=== PATIENT | male | born 1935 | race Caucasian/White ===

== ENCOUNTER 2017-08-13 15:42 | Emergency (ER) | payer MEDICARE, MEDICAID ==
[2017-08-13] MEDS ORDERED: Albuterol/Ipratropium 3.0-0.5 MG/3 ML Neb Soln NEB ONE (16:50)
--- NOTE | 2017-08-13 17:12 | EDM.PDOC ---
ED HPI GENERAL MEDICAL PROBLEM - General Chief Complaint: General Stated Complaint: WEAKNESS,SOB,TIRED Time Seen by Provider: 08/13/17 16:35 Source of Information: Reports: Patient History Limitations: Reports: No Limitations - History of Present Illness INITIAL COMMENTS - FREE TEXT/NARRATIVE: Patient is an 81-year-old gentleman who presents to the emergency department this afternoon with a complaint of weakness, shortness of breath, and cough. Patient states that symptoms been going on for about 10 days. Says that he has no appetite, lost weight, and just feels very weak. Patient denies chest pain, fever, abdominal pain, nausea, vomiting, diarrhea, headache, or dizziness. Onset: Gradual Duration: Day(s): Location: Reports: Generalized Severity: Mild Improves with: Reports: None Worsens with: Reports: None Associated Symptoms: Reports: Cough, Shortness of Breath, Weakness. Denies: Chest Pain, Fever/Chills, Headaches, Nausea/Vomiting - Related Data Allergies Allergy/AdvReac Type Severity Reaction Status Date / Time No Known Drug Allergies Allergy Cannot Verified 08/13/17 16:31 Remember Home Meds: Home Meds Allopurinol [Zyloprim] 100 mg PO BID 02/22/16 [History] Aspirin [Halfprin] 81 mg PO BRK 02/23/16 [History] Finasteride [Proscar] 5 mg PO DAILY tablet 01/21/17 [Rx] Metoprolol Tartrate [Lopressor] 25 mg PO BID tablet 01/21/17 [Rx] Omeprazole 20 mg PO ACBREAKFAST cap.cr 01/21/17 [Rx] Prednisone [IJD: predniSONE] 20 mg PO WITHBREAKFAST #5 tablet 01/21/17 [Rx] Simvastatin [Zocor] 40 mg PO BEDTIME tablet 01/21/17 [Rx] guaiFENesin [Mucinex] 600 mg PO BID tab.er 01/21/17 [Rx] Past Medical History HEENT History: Reports: Cataract, Impaired Vision, Macular Degeneration 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 Cardiovascular History: Reports: High Cholesterol, Hypertension Respiratory History: Reports: COPD Gastrointestinal History: Reports: GERD Genitourinary History: Reports: Prostate Disorder, Other (See Below) Other Genitourinary History: h/o bladder surgery from accident when younger Musculoskeletal History: Reports: Fracture, Gout Other Musculoskeletal History: crushing injury to pelvis and legs Neurological History: Reports: CVA Hematologic History: Reports: Blood Transfusion(s) - Infectious Disease History Infectious Disease History: Reports: Chicken Pox, Mumps - Past Surgical History Male Surgical History: Reports: Other (See Below) Musculoskeletal Surgical History: Reports: Other (See Below) Social & Family History - Family History Family Medical History: Noncontributory - Tobacco Use Smoking Status *Q: Former Smoker Years of Tobacco use: 20 Packs/Tins Daily: 4 Used Tobacco, but Quit: Yes Month/Year Tobacco Last Used: quit 48 years ago Second Hand Smoke Exposure: No - Caffeine Use Caffeine Use: Reports: Coffee - Recreational Drug Use Recreational Drug Use: No ED ROS GENERAL - Review of Systems Review Of Systems: ROS reveals no pertinent complaints other than HPI. Constitutional: Reports: Weakness HEENT: Reports: No Symptoms Respiratory: Reports: Shortness of Breath, Cough Cardiovascular: Reports: No Symptoms. Denies: Chest Pain Endocrine: Reports: No Symptoms GI/Abdominal: Reports: No Symptoms : Reports: No Symptoms Musculoskeletal: Reports: No Symptoms Skin: Reports: No Symptoms Neurological: Reports: No Symptoms Psychiatric: Reports: No Symptoms Hematologic/Lymphatic: Reports: No Symptoms Immunologic: Reports: No Symptoms ED EXAM, GENERAL - Physical Exam Exam: See Below Exam Limited By: No Limitations General Appearance: Alert, WD/WN, No Apparent Distress Eye Exam: Bilateral Eye: Normal Inspection Nose: Normal Inspection, Normal Mucosa, No Blood Throat/Mouth: Normal Inspection, Normal Oropharynx, No Airway Compromise Head: Atraumatic, Normocephalic Neck: Normal Inspection, Supple, Non-Tender. No: Lymphadenopathy (L), Lymphadenopathy (R) Respiratory/Chest: No Respiratory Distress, Decreased Breath Sounds, Wheezing ( Expiratory bilateral) Cardiovascular: Regular Rate, Rhythm, No Murmur GI/Abdominal: Normal Bowel Sounds, Soft, Non-Tender, No Organomegaly, No Distention, No Abnormal Bruit, No Mass Back Exam: Normal Inspection. No: CVA Tenderness (L), CVA Tenderness (R) Extremities: Normal Inspection, No Pedal Edema Neurological: Alert, Oriented, CN II-XII Intact, Normal Cognition, No Motor/ Sensory Deficits Psychiatric: Normal Affect, Normal Mood Skin Exam: Warm, Dry, Intact, Normal Color, No Rash Lymphatic: No Adenopathy EKG INTERPRETATION EKG Date: 08/13/17 Time: 16:30 Rhythm: Other (Sinus rhythm with PACs) Rate (Beats/Min): 87 Comparison: No Change Course - Vital Signs Last Recorded V/S: Last Vital Signs Temp 99 F 08/13/17 16:31 Pulse 96 08/13/17 16:31 Resp 15 08/13/17 16:31 BP 102/66 08/13/17 16:31 Pulse Ox 96 08/13/17 16:31 - Orders/Labs/Meds Orders: Active Orders 24 hr Category Date Time Status EKG Documentation Completion [RC] ASDIRECTED Care 08/13/17 16:29 Active RT Aerosol Therapy [RC] ASDIRECTED Care 08/13/17 16:50 Ordered Chest 2V [CR] Stat Exams 08/13/17 16:29 Taken UA W/MICROSCOPIC [URIN] Stat Lab 08/13/17 16:27 Ordered EKG 12 Lead [EK] Routine Ther 08/13/17 16:28 Ordered Labs: Laboratory Tests 08/13/17 08/13/17 Range/Units 16:15 16:15 WBC 7.0 (5.0-10.0) 10^3/uL RBC 4.03 L (4.50-6.00) 10^6/uL Hgb 12.2 L (13.0-17.0) g/dL Hct 37.3 L (40.0-52.0) % MCV 92.7 H (82.0-92.0) fL MCH 30.2 (27.0-31.0) pg MCHC 32.6 (32.0-36.0) g/dL RDW 13.4 (11.5-14.5) % Plt Count 344 H D (150-300) 10^3/uL MPV 7.3 L (7.4-10.4) fL Neut % (Auto) 75.2 H (50.0-70.0) % Lymph % (Auto) 15.0 L (20.0-40.0) % [place] % (Auto) 7.2 (2.0-8.0) % Eos % (Auto) 2.6 (1.0-3.0) % Baso % (Auto) 0.0 (0.0-1.0) % Neut # (Auto) 5.2 (2.5-7.0) 10^3/uL Lymph # (Auto) 1.1 (1.0-4.0) 10^3/uL [place] # (Auto) 0.5 (0.1-0.8) 10^3/uL Eos # (Auto) 0.2 (0.1-0.3) 10^3/uL Baso # (Auto) 0.0 (0.0-0.1) 10^3/uL Sodium 142 (136-145) mmol/L Potassium 4.0 (3.3-5.3) mmol/L Chloride 102 (98-115) mmol/L Carbon Dioxide 30.3 (21.0-32.0) mmol/L BUN 19 (6-25) mg/dL Creatinine 1.25 H (0.51-1.17) mg/dL Est Cr Clr Drug Dosing 37.35 mL/min Estimated GFR (MDRD) 55 mL/min Glucose 103 (70-110) mg/dL Calcium 9.2 (8.7-10.3) mg/dL Total Bilirubin 0.4 (0.2-1.0) mg/dL AST 21 (15-37) U/L ALT 25 (12-78) U/L Alkaline Phosphatase 66 (46-116) IU/L Total Protein 7.1 (6.4-8.2) g/dL Albumin 3.61 (3.00-4.80) g/dL Meds: Medications Discontinued Medications Generic Name Dose Route Start Last Admin Trade Name Freq PRN Reason Stop Dose Admin Albuterol/Ipratropium 3 ml 08/13/17 16:50 Duoneb 3.0-0.5 Mg/3 Ml NEB 08/13/17 16:51 ONETIME ONE - Radiology Interpretation Free Text/Narrative:: Chest x-ray shows chronic COPD - Re-Assessments/Exams Free Text/Narrative Re-Assessment/Exam: 08/13/17 17:22 Patient afebrile, nontoxic appearing, vital signs stable. Patient has not been consistent taking his COPD inhalers. Reemphasized the importance and went over that with him. Patient will follow-up with Dr. Hernandez this week. Departure - Departure Time of Disposition: 17:27 Disposition: Home, Self-Care 01 Condition: Good Clinical Impression: COPD (chronic obstructive pulmonary disease) Qualifiers: COPD type: COPD with acute exacerbation Qualified Code(s): J44.1 - Chronic obstructive pulmonary disease with (acute) exacerbation - Discharge Information Instructions: Chronic Obstructive Pulmonary Disease, [id number] Referrals: Terese Arambula MD [Primary Care Provider] - Forms: ED Department Discharge Additional Instructions: Follow-up with Dr. Hernandez on Saturday. Call tomorrow for appointment time. Return to the emergency department if symptoms continue or worsen. Take inhalers as directed. - My Orders Last 24 Hours: My Active Orders 08/13/17 16:27 UA W/MICROSCOPIC [URIN] Stat 08/13/17 16:28 EKG 12 Lead [EK] Routine 08/13/17 16:29 EKG Documentation Completion [RC] ASDIRECTED Chest 2V [CR] Stat 08/13/17 16:50 RT Aerosol Therapy [RC] ASDIRECTED - Assessment/Plan Last 24 Hours: My Active Orders 08/13/17 16:27 UA W/MICROSCOPIC [URIN] Stat 08/13/17 16:28 EKG 12 Lead [EK] Routine 08/13/17 16:29 EKG Documentation Completion [RC] ASDIRECTED Chest 2V [CR] Stat 08/13/17 16:50 RT Aerosol Therapy [RC] ASDIRECTED Assessment:: COPD exacerbation
[2017-08-13] MEDS ORDERED: Albuterol/Ipratropium 3.0-0.5 MG/3 ML Neb Soln ONE (17:30)
[2017-08-13 17:50] VITALS: BP 109/46
== END 2017-08-13 18:30 | disposition home or self-care (01) ==
LOC: KA.ED 15:42
DX: J44.1 Chronic obstructive pulmonary disease with (acute) exacerbation (principal); E78.00 Pure hypercholesterolemia, unspecified; I10 Essential (primary) hypertension; Z79.899 Other long term (current) drug therapy; Z87.891 Personal history of nicotine dependence
CPT/HCPCS: 71046; 80053; 81001; 85025; 93005; 94640; 99285

== ENCOUNTER 2017-08-28 16:18 | Emergency (ER) | payer MEDICARE, MEDICAID ==
--- NOTE | 2017-08-28 16:34 | EDM.PDOC ---
ED HPI GENERAL MEDICAL PROBLEM - General Chief Complaint: Chest Pain Stated Complaint: L ARM PAIN Time Seen by Provider: 08/28/17 16:33 Source of Information: Reports: Patient History Limitations: Reports: No Limitations - History of Present Illness INITIAL COMMENTS - FREE TEXT/NARRATIVE: 81 YO WM presents to ER complaining of left sided shoulder and arm pain x 2 days. Pt reports pain has been intermittent. Pt reports pain radiates to left chest on occasion. Pt reports pain is worse with left shoulder movment. Pt denies nausea/vomiting, denies diaphoresis. Pt reports history of COPD with no change in his baseline shortness of breath. Pt states he had an episode of chest pain 2 weeks ago as well. Duration: Day(s): (2) Location: Reports: Chest, Upper Extremity, Left Quality: Reports: Ache Severity: Mild Improves with: Reports: None Worsens with: Reports: None Associated Symptoms: Reports: Chest Pain, Cough, Shortness of Breath. Denies: Diaphoresis, Fever/Chills, Nausea/Vomiting - Related Data Allergies Allergy/AdvReac Type Severity Reaction Status Date / Time No Known Drug Allergies Allergy Cannot Verified 08/28/17 17:11 Remember Home Meds: Home Meds Allopurinol [Zyloprim] 100 mg PO BID 02/22/16 [History] Aspirin [Halfprin] 81 mg PO BRK 02/23/16 [History] Finasteride [Proscar] 5 mg PO DAILY tablet 01/21/17 [Rx] Metoprolol Tartrate [Lopressor] 25 mg PO BID tablet 01/21/17 [Rx] Omeprazole 20 mg PO ACBREAKFAST cap.cr 01/21/17 [Rx] Albuterol [Proventil HFA] 1 puff INH Q4HR PRN 08/28/17 [History] Albuterol [Proventil Neb Soln] 2.5 mg NEB Q4HR PRN 08/28/17 [History] Budesonide/Formoterol Fumarate [Symbicort 160-4.5 Mcg Inhaler] 2 puff IH BEDTIME 08/28/17 [History] Nebulizer/Compressor [Devilbiss Pulmoneb Lt Comp-Neb] 1 each NEB ASDIRECTED [History] Simvastatin [Zocor] 20 mg PO BEDTIME 08/28/17 [History] Past Medical History HEENT History: Reports: Cataract, Impaired Vision, Macular Degeneration 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 Cardiovascular History: Reports: High Cholesterol, Hypertension Respiratory History: Reports: COPD Gastrointestinal History: Reports: GERD Genitourinary History: Reports: Prostate Disorder, Other (See Below) Other Genitourinary History: h/o bladder surgery from accident when younger Musculoskeletal History: Reports: Fracture, Gout Other Musculoskeletal History: crushing injury to pelvis and legs Neurological History: Reports: CVA Hematologic History: Reports: Blood Transfusion(s) - Infectious Disease History Infectious Disease History: Reports: Chicken Pox, Mumps - Past Surgical History Male Surgical History: Reports: Other (See Below) Musculoskeletal Surgical History: Reports: Other (See Below) Social & Family History - Family History Family Medical History: Noncontributory - Tobacco Use Smoking Status *Q: Former Smoker Years of Tobacco use: 20 Packs/Tins Daily: 4 Used Tobacco, but Quit: Yes Month/Year Tobacco Last Used: quit 48 years ago Second Hand Smoke Exposure: No - Caffeine Use Caffeine Use: Reports: Coffee - Recreational Drug Use Recreational Drug Use: No ED ROS GENERAL - Review of Systems Review Of Systems: See Below Constitutional: Reports: No Symptoms HEENT: Reports: No Symptoms Respiratory: Reports: Shortness of Breath, Cough Cardiovascular: Reports: Chest Pain Endocrine: Reports: No Symptoms GI/Abdominal: Reports: No Symptoms : Reports: No Symptoms Musculoskeletal: Reports: Shoulder Pain Skin: Reports: No Symptoms Neurological: Reports: No Symptoms Psychiatric: Reports: No Symptoms Hematologic/Lymphatic: Reports: No Symptoms Immunologic: Reports: No Symptoms ED EXAM, GENERAL - Physical Exam Exam: See Below Exam Limited By: No Limitations General Appearance: Alert, WD/WN, No Apparent Distress Nose: Normal Inspection, Normal Mucosa, No Blood Throat/Mouth: Normal Inspection, Normal Lips, Normal Teeth, Normal Gums, Normal Oropharynx, Normal Voice, No Airway Compromise Head: Atraumatic, Normocephalic Neck: Normal Inspection, Supple, Non-Tender, Full Range of Motion Respiratory/Chest: No Respiratory Distress, No Accessory Muscle Use, Chest Non- Tender, Rales, Rhonchi Cardiovascular: Normal Peripheral Pulses, Regular Rate, Rhythm, No Edema, No Gallop, No JVD, No Murmur, No Rub GI/Abdominal: Normal Bowel Sounds, Soft, Non-Tender, No Organomegaly, No Distention, No Abnormal Bruit, No Mass Back Exam: Normal Inspection, Full Range of Motion, NT Extremities: Normal Inspection, Normal Range of Motion, Non-Tender, No Pedal Edema, Normal Capillary Refill, Arm Pain Neurological: Alert, Oriented, CN II-XII Intact, Normal Cognition, Normal Gait, Normal Reflexes, No Motor/Sensory Deficits Psychiatric: Normal Affect, Normal Mood Skin Exam: Warm, Dry, Intact, Normal Color, No Rash Lymphatic: No Adenopathy EKG INTERPRETATION EKG Date: 08/28/17 Time: 16:58 Rhythm: NSR Rate (Beats/Min): 58 [place]: Normal P-Wave: Present QRS: Normal ST-T: Normal QT: Normal Comparison: NA - No Prior EKG Course - Vital Signs Last Recorded V/S: Last Vital Signs Temp 36.7 C 08/28/17 17:30 Pulse 60 08/28/17 17:30 Resp 18 08/28/17 17:30 BP 121/47 L 08/28/17 17:30 Pulse Ox 97 08/28/17 17:30 - Orders/Labs/Meds Orders: Active Orders 24 hr Category Date Time Status Cardiac Monitoring [RC] . DIRECTED Care 08/28/17 16:48 Active EKG Documentation Completion [RC] ASDIRECTED Care 08/28/17 16:49 Active Oxygen Therapy, ED [RC] ASDIRECTED Care 08/28/17 16:48 Active Peripheral IV Care [RC] . DIRECTED Care 08/28/17 16:49 Active Chest 2V [CR] Stat Exams 08/28/17 16:48 Ordered CK W CKMB [CHEM] Stat Lab 08/28/17 16:57 Received COMPREHENSIVE METABOLIC PN,CMP [CHEM] Stat Lab 08/28/17 16:57 Received TROPONIN I [CHEM] Stat Lab 08/28/17 16:57 Received Sodium Chloride 0.9% [Syrex Flush] Med 08/28/17 16:48 Active 5 ml FLUSH Q8HR PRN Peripheral IV Insertion Adult [OM.PC] Routine Oth 08/28/17 16:48 Ordered EKG 12 Lead [EK] Routine Ther 08/28/17 16:48 Ordered Medication Orders Sodium Chloride (Syrex Flush) 5 ml FLUSH Q8HR PRN PRN Reason: Keep Vein Open Labs: Laboratory Tests 08/28/17 08/28/17 Range/Units 16:57 16:57 WBC 6.4 (5.0-10.0) 10^3/uL RBC 3.80 L (4.50-6.00) 10^6/uL Hgb 11.7 L (13.0-17.0) g/dL Hct 35.6 L (40.0-52.0) % MCV 93.6 H (82.0-92.0) fL MCH 30.9 (27.0-31.0) pg MCHC 33.0 (32.0-36.0) g/dL RDW 13.8 (11.5-14.5) % Plt Count 204 D (150-300) 10^3/uL MPV 7.9 (7.4-10.4) fL Neut % (Auto) 73.0 H (50.0-70.0) % Lymph % (Auto) 16.6 L (20.0-40.0) % [place] % (Auto) 6.4 (2.0-8.0) % Eos % (Auto) 4.0 H (1.0-3.0) % Baso % (Auto) 0.0 (0.0-1.0) % Neut # (Auto) 4.6 (2.5-7.0) 10^3/uL Lymph # (Auto) 1.1 (1.0-4.0) 10^3/uL [place] # (Auto) 0.4 (0.1-0.8) 10^3/uL Eos # (Auto) 0.3 (0.1-0.3) 10^3/uL Baso # (Auto) 0.0 (0.0-0.1) 10^3/uL PT 10.0 (8.9-11.4) SEC INR 1.0 (0.9-1.1) APTT 25.8 (20.8-31.2) SEC Meds: Medications Generic Name Dose Route Start Last Admin Trade Name Freq PRN Reason Stop Dose Admin Sodium Chloride 5 ml 08/28/17 16:48 Syrex Flush FLUSH Q8HR PRN Keep Vein Open Discontinued Medications Generic Name Dose Route Start Last Admin Trade Name Freq PRN Reason Stop Dose Admin Aspirin 324 mg 08/28/17 16:48 08/28/17 17:37 Aspirin PO 08/28/17 16:49 243 mg ONETIME ONE Administration Nitroglycerin 1 gm 08/28/17 16:48 08/28/17 17:39 Nitro-Bid 2% TOP 08/28/17 16:49 Not Given ONETIME ONE - Radiology Interpretation Free Text/Narrative:: CXR- NAD - Re-Assessments/Exams Free Text/Narrative Re-Assessment/Exam: 08/28/17 17:48 discussed with patient consideration for hospitalization to rule out cardiac concerns. Pt refused. I have a low suspicion for cardiac related pain so i will discharge with recommendations to return for worsening symptoms and follow up in clinic for further evaluation and treatment. Departure - Departure Time of Disposition: 17:49 Disposition: Home, Self-Care 01 Condition: Fair Clinical Impression: Atypical chest pain Shoulder pain, left Qualifiers: Chronicity: acute Qualified Code(s): M25.512 - Pain in left shoulder - Discharge Information Instructions: Shoulder Pain, [id number], Nonspecific Chest Pain, [id number] Referrals: Terese Arambula MD [Primary Care Provider] - Forms: ED Department Discharge Additional Instructions: 1. discharge home 2. motrin 600mg PO Q6 PRN pain 3. follow up in clinic for further evaluation and treatment 4. return to ER for worsening symptoms - My Orders Last 24 Hours: My Active Orders 08/28/17 16:48 Cardiac Monitoring [RC] . DIRECTED Oxygen Therapy, ED [RC] ASDIRECTED Chest 2V [CR] Stat Sodium Chloride 0.9% [Syrex Flush] 5 ml FLUSH Q8HR PRN Peripheral IV Insertion Adult [OM.PC] Routine EKG 12 Lead [EK] Routine 08/28/17 16:49 EKG Documentation Completion [RC] ASDIRECTED Peripheral IV Care [RC] . DIRECTED 08/28/17 16:57 CK W CKMB [CHEM] Stat COMPREHENSIVE METABOLIC PN,CMP [CHEM] Stat TROPONIN I [CHEM] Stat - Assessment/Plan Last 24 Hours: My Active Orders 08/28/17 16:48 Cardiac Monitoring [RC] . DIRECTED Oxygen Therapy, ED [RC] ASDIRECTED Chest 2V [CR] Stat Sodium Chloride 0.9% [Syrex Flush] 5 ml FLUSH Q8HR PRN Peripheral IV Insertion Adult [OM.PC] Routine EKG 12 Lead [EK] Routine 08/28/17 16:49 EKG Documentation Completion [RC] ASDIRECTED Peripheral IV Care [RC] . DIRECTED 08/28/17 16:57 CK W CKMB [CHEM] Stat COMPREHENSIVE METABOLIC PN,CMP [CHEM] Stat TROPONIN I [CHEM] Stat Assessment:: 1. left shoulder pain 2. atypical chest pain Plan: 1. discharge home 2. motrin 600mg PO Q6 PRN pain 3. follow up in clinic for further evaluation and treatment 4. return to ER for worsening symptoms
[2017-08-28] MEDS ORDERED: Sodium Chloride 0.9% 5 ML Syringe FLUSH PRN (16:48)
[2017-08-28] MEDS: Aspirin 81 MG Tab.Chew PO ONE (17:37)
[2017-08-28] MEDS: Nitroglycerin 2% Oint 1 GM UD Packet TOP ONE (17:39)
[2017-08-28 17:53] LABS: CHLORIDE,CL 104 mmol/L (98-115); SODIUM,NA 142 mmol/L (136-145)
[2017-08-28 17:55] VITALS: BP 133/51
== END 2017-08-28 18:00 | disposition home or self-care (01) ==
LOC: KA.ED 16:18
DX: R07.89 Other chest pain (principal); M25.512 Pain in left shoulder; E78.00 Pure hypercholesterolemia, unspecified; I10 Essential (primary) hypertension; J44.9 Chronic obstructive pulmonary disease, unspecified; K21.9 Gastro-esophageal reflux disease without esophagitis; Z79.82 Long term (current) use of aspirin; Z79.899 Other long term (current) drug therapy; Z87.891 Personal history of nicotine dependence
CPT/HCPCS: 36415; 71046; 80053; 82550; 82553; 84484; 85025; 85610; 85730; 93005; 99284; 99285; A9270-GY

== ENCOUNTER 2018-06-27 16:55 | Inpatient (IN) | payer MEDICARE, MEDICAID ==
--- NOTE | 2018-06-27 17:39 | CR ---
[id number] RAD/RAD Chest PA And Lateral EXAM: RAD Chest PA And Lateral INDICATION: COUGH. COMPARISON: February 13, 2018. DISCUSSION: Cardiomediastinal silhouette is normal in size and contour. No infiltrate, effusion, pneumothorax, or edema. IMPRESSION: No acute findings or significant change from the prior examination. Keaton Sandhu MD 06/27/18 [id number] Thank you for allowing us to participate in the care of your patient.
[2018-06-27] MEDS ORDERED: Sodium Chloride 0.9% 10 ML Syringe FLUSH PRN (17:40)
--- NOTE | 2018-06-27 17:40 | EDM.PDOC ---
ED HPI GENERAL MEDICAL PROBLEM - General Chief Complaint: Respiratory Problem Stated Complaint: COUGH Time Seen by Provider: 06/27/18 17:15 Source of Information: Reports: Patient History Limitations: Reports: No Limitations - History of Present Illness INITIAL COMMENTS - FREE TEXT/NARRATIVE: 82 YO WM presents to ER complaining of productive cough with associated shortness of breath which began 2 days ago. Pt came to ER with concerns he has pneumonia due to similar presentation in the past. Pt denies any fever/chills, no nausea/vomiting, no chest pain or back pain. Pt reports he used his inhaler today but states it doesn't seem to be helping. Onset Date: 06/24/18 Duration: Day(s): (3) Location: Reports: Generalized Severity: Mild Improves with: Reports: Rest Worsens with: Reports: Breathing, Movement Associated Symptoms: Reports: Cough, cough w sputum, Shortness of Breath. Denies: Chest Pain, Diaphoresis, Fever/Chills, Headaches, Loss of Appetite, Malaise, Nausea/Vomiting, Rash, Syncope, Weakness - Related Data Allergies Allergy/AdvReac Type Severity Reaction Status Date / Time No Known Drug Allergies Allergy Cannot Verified 06/27/18 17:05 Remember Home Meds: Home Meds Allopurinol [Zyloprim] 100 mg PO DAILY 02/22/16 [History] Omeprazole 20 mg PO ACBREAKFAST cap.cr 01/21/17 [Rx] Albuterol [Proventil HFA] 1 puff INH Q4HR PRN 08/28/17 [History] Albuterol [Proventil Neb Soln] 2.5 mg NEB Q4HR PRN 08/28/17 [History] Budesonide/Formoterol Fumarate [Symbicort 160-4.5 Mcg Inhaler] 2 puff IH BID [History] Simvastatin [Zocor] 20 mg PO BEDTIME 08/28/17 [History] Benzonatate 1 cap PO ASDIRECTED PRN 06/27/18 [History] Metoprolol Tartrate [Lopressor] 12.5 mg PO BID 06/27/18 [History] Triamcinolone Acetonide [Triamcinolone Acetonide 0.1% Crm] 1 applic TOP ASDIRECTED PRN 06/27/18 [History] hydroCHLOROthiazide [Hydrochlorothiazide] 25 mg PO DAILY 06/27/18 [History] traMADol HCl [Tramadol HCl] 50 mg PO QID PRN 06/27/18 [History] Past Medical History HEENT History: Reports: Cataract, Impaired Vision, Macular Degeneration 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 Cardiovascular History: Reports: High Cholesterol, Hypertension Respiratory History: Reports: COPD Gastrointestinal History: Reports: GERD Genitourinary History: Reports: Prostate Disorder, Other (See Below) Other Genitourinary History: h/o bladder surgery from accident when younger Musculoskeletal History: Reports: Fracture, Gout Other Musculoskeletal History: crushing injury to pelvis and legs Neurological History: Reports: CVA Hematologic History: Reports: Blood Transfusion(s) - Infectious Disease History Infectious Disease History: Reports: Chicken Pox, Mumps - Past Surgical History Male Surgical History: Reports: Other (See Below) Musculoskeletal Surgical History: Reports: Other (See Below) Social & Family History - Family History Family Medical History: Noncontributory - Caffeine Use Caffeine Use: Reports: Coffee ED ROS GENERAL - Review of Systems Review Of Systems: See Below Constitutional: Reports: No Symptoms HEENT: Reports: No Symptoms Respiratory: Reports: Shortness of Breath, Wheezing, Sputum. Denies: Hemoptysis Cardiovascular: Reports: No Symptoms Endocrine: Reports: No Symptoms GI/Abdominal: Reports: No Symptoms : Reports: No Symptoms Musculoskeletal: Reports: No Symptoms Skin: Reports: No Symptoms Neurological: Reports: No Symptoms Psychiatric: Reports: No Symptoms Hematologic/Lymphatic: Reports: No Symptoms Immunologic: Reports: No Symptoms ED EXAM, GENERAL - Physical Exam Exam: See Below Exam Limited By: No Limitations General Appearance: Alert, WD/WN, No Apparent Distress Nose: Normal Inspection, Normal Mucosa, No Blood Throat/Mouth: Normal Inspection, Normal Lips, Normal Teeth, Normal Gums, Normal Oropharynx, Normal Voice, No Airway Compromise Head: Atraumatic, Normocephalic Neck: Normal Inspection, Supple, Non-Tender, Full Range of Motion Respiratory/Chest: No Respiratory Distress, No Accessory Muscle Use, Chest Non- Tender, Rhonchi, Wheezing, Accessory Muscle Use Cardiovascular: Normal Peripheral Pulses, Regular Rate, Rhythm, No Edema, No Gallop, No JVD, No Murmur, No Rub GI/Abdominal: Normal Bowel Sounds, Soft, Non-Tender, No Organomegaly, No Distention, No Abnormal Bruit, No Mass Back Exam: Normal Inspection, Full Range of Motion, NT Extremities: Normal Inspection, Normal Range of Motion, Non-Tender, Normal Capillary Refill, No Pedal Edema Neurological: Alert, Oriented, CN II-XII Intact, Normal Cognition, Normal Gait, Normal Reflexes, No Motor/Sensory Deficits Psychiatric: Normal Affect, Normal Mood Skin Exam: Warm, Dry, Intact, Normal Color, No Rash Lymphatic: No Adenopathy EKG INTERPRETATION EKG Date: 06/27/18 Time: 18:16 Rate (Beats/Min): 74 Delta: Normal EKG Interpretation Comments: 2nd degree heart block Course - Vital Signs Last Recorded V/S: Last Vital Signs Temp 35.9 C 06/27/18 17:01 Pulse 72 06/27/18 17:01 Resp 16 06/27/18 17:01 BP 152/73 H 06/27/18 17:01 Pulse Ox 94 L 06/27/18 17:01 - Orders/Labs/Meds Orders: Active Orders 24 hr Category Date Time Status EKG Documentation Completion [RC] ASDIRECTED Care 06/27/18 17:40 Active Peripheral IV Care [RC] . DIRECTED Care 06/27/18 17:40 Active RT Aerosol Therapy [RC] ASDIRECTED Care 06/27/18 17:41 Active BMP [BASIC METABOLIC PANEL,BMP] [CHEM] Stat Lab 06/27/18 17:25 Results CK W CKMB [CHEM] Stat Lab 06/27/18 17:25 Results TROPONIN I [CHEM] Stat Lab 06/27/18 17:25 Results Sodium Chloride 0.9% [Saline Flush] Med 06/27/18 17:40 Active 10 ml FLUSH Q8HR PRN Peripheral IV Insertion Adult [OM.PC] Routine Oth 06/27/18 17:40 Ordered EKG 12 Lead [EK] Routine Ther 06/27/18 17:40 Ordered Medication Orders Sodium Chloride (Saline Flush) 10 ml FLUSH Q8HR PRN PRN Reason: keep vein open Last Admin: 06/27/18 18:07 Dose: 10 ml Labs: Laboratory Tests 06/27/18 06/27/18 Range/Units 17:10 17:25 WBC 6.21 (5.00-10.00) 10^3/uL RBC 3.70 L (4.50-6.00) 10^6/uL Hgb 11.8 L (13.0-17.0) g/dL Hct 34.7 L (40.0-52.0) % MCV 93.8 H (82.0-92.0) fL MCH 31.9 H (27.0-31.0) pg MCHC 34.0 (32.0-36.0) g/dL RDW 13.6 (11.5-14.5) % Plt Count 193 (150-400) 10^3/uL MPV 9.9 (7.4-10.4) fL Immature Gran % (Auto) 0.2 (0.0-5.0) % Neut % (Auto) 69.0 (50.0-70.0) % Lymph % (Auto) 16.3 L (20.0-40.0) % Cedar % (Auto) 7.1 (2.0-8.0) % Eos % (Auto) 6.8 H (1.0-3.0) % Baso % (Auto) 0.6 (0.0-1.0) % Immature Gran # (Auto) 0.01 (0.00-0.50) 10^3/uL Neut # (Auto) 4.29 (2.50-7.00) 10^3/uL Lymph # (Auto) 1.01 (1.00-4.00) 10^3/uL Cedar # (Auto) 0.44 (0.10-0.80) 10^3/uL Eos # (Auto) 0.42 H (0.10-0.30) 10^3/uL Baso # (Auto) 0.04 (0.00-0.10) 10^3/uL Sodium 143 (138-146) mmol/L Potassium 3.9 (3.5-4.9) mmol/L Chloride 100 (98-109) mmol/L Carbon Dioxide 29 (24-29) mmol/L Anion Gap 17.9 H (5-15) mmol/L BUN 26 (8-26) mg/dL Creatinine 1.3 (0.6-1.3) mg/dL Est Cr Clr Drug Dosing 32.57 mL/min Estimated GFR (MDRD) 53 mL/min Glucose 102 (70-105) mg/dL Troponin I < 0.04 (0.00-0.08) ng/mL Meds: Medications Generic Name Dose Route Start Last Admin Trade Name Josesito PRN Reason Stop Dose Admin Sodium Chloride 10 ml 06/27/18 17:40 06/27/18 18:07 Saline Flush FLUSH 10 ml Q8HR PRN Administration keep vein open Discontinued Medications Generic Name Dose Route Start Last Admin Trade Name Josesito PRN Reason Stop Dose Admin Albuterol/Ipratropium 3 ml 06/27/18 17:41 06/27/18 18:04 Duoneb 3.0-0.5 Mg/3 Ml NEB 06/27/18 17:42 3 ml ONETIME ONE Administration Methylprednisolone Sodium Succinate 125 mg 06/27/18 17:41 06/27/18 18:06 Solu-Medrol IVPUSH 06/27/18 17:42 125 mg ONETIME ONE Administration - Radiology Interpretation Free Text/Narrative:: CXR- NAD Departure - Departure Time of Disposition: 18:25 Disposition: Admitted As Inpatient 64 Condition: Fair Clinical Impression: COPD exacerbation - Discharge Information Referrals: Terese Arambula MD [Primary Care Provider] - Forms: ED Department Discharge - My Orders Last 24 Hours: My Active Orders 06/27/18 17:25 BMP [BASIC METABOLIC PANEL,BMP] [CHEM] Stat CK W CKMB [CHEM] Stat TROPONIN I [CHEM] Stat 06/27/18 17:40 EKG Documentation Completion [RC] ASDIRECTED Peripheral IV Care [RC] . DIRECTED Sodium Chloride 0.9% [Saline Flush] 10 ml FLUSH Q8HR PRN Peripheral IV Insertion Adult [OM.PC] Routine EKG 12 Lead [EK] Routine 06/27/18 17:41 RT Aerosol Therapy [RC] ASDIRECTED - Assessment/Plan Last 24 Hours: My Active Orders 06/27/18 17:25 BMP [BASIC METABOLIC PANEL,BMP] [CHEM] Stat CK W CKMB [CHEM] Stat TROPONIN I [CHEM] Stat 06/27/18 17:40 EKG Documentation Completion [RC] ASDIRECTED Peripheral IV Care [RC] . DIRECTED Sodium Chloride 0.9% [Saline Flush] 10 ml FLUSH Q8HR PRN Peripheral IV Insertion Adult [OM.PC] Routine EKG 12 Lead [EK] Routine 06/27/18 17:41 RT Aerosol Therapy [RC] ASDIRECTED Assessment:: 1. COPD exacerbation Plan: 1. admit to medicine- Dr Terese Hernandez 2. duoneb Q4 and PRN 3. solumedrol 80mg IV Q8 4. supportive care
[2018-06-27] MEDS ORDERED: Albuterol/Ipratropium 3.0-0.5 MG/3 ML Neb Soln NEB ONE (17:41)
[2018-06-27] MEDS ORDERED: methylPREDNISolone Sodium Succinate 125 MG/2 ML SDV IVPUSH ONE (17:41)
[2018-06-27 17:51] LABS: ANION GAP 17.9 mmol/L (5-15)
[2018-06-27 18:12] LABS: SODIUM,NA 143 mmol/L (138-146)
[2018-06-27 18:13] LABS: CHLORIDE,CL 100 mmol/L (98-109)
[2018-06-27] MEDS ORDERED: traMADol 50 MG Tab PO PRN (18:47)
[2018-06-27] MEDS ORDERED: Triamcinolone Acetonide 0.1% Crm 15 GM Tube TOP PRN (18:47)
[2018-06-27] MEDS ORDERED: Benzonatate 100 MG Cap PO PRN (18:47)
[2018-06-27] MEDS ORDERED: EPINEPHrine 1:10,000 1 MG/10 ML Syringe IVPUSH PRN (19:12)
[2018-06-27] MEDS ORDERED: Lidocaine 2% 100 MG/5 ML Syringe IVPUSH PRN (19:12)
[2018-06-27] MEDS ORDERED: Nitroglycerin 0.4 MG Tab.SL SL PRN (19:12)
[2018-06-27] MEDS ORDERED: Atropine 0.1 MG/ML 10 ML Syringe IVPUSH PRN (19:12)
[2018-06-27] MEDS: Albuterol/Ipratropium 3.0-0.5 MG/3 ML Neb Soln NEB SCH ×2 (19:53→22:20)
[2018-06-27] MEDS: methylPREDNISolone Sodium Succinate 125 MG/2 ML SDV IVPUSH SCH (19:53)
[2018-06-27] MEDS: Metoprolol Tartrate 25 MG Tab PO SCH (21:12)
[2018-06-27] MEDS: Simvastatin 20 MG Tab PO SCH (21:13)
[2018-06-28] MEDS: methylPREDNISolone Sodium Succinate 125 MG/2 ML SDV IVPUSH SCH ×3 (02:08→18:49)
[2018-06-28] MEDS: Sodium Chloride 0.9% 10 ML Syringe FLUSH PRN ×2 (02:14→10:45)
[2018-06-28] MEDS: Albuterol/Ipratropium 3.0-0.5 MG/3 ML Neb Soln NEB SCH ×6 (02:15→23:23)
[2018-06-28] MEDS: Omeprazole 20 MG Cap.CR PO SCH (06:32)
[2018-06-28 07:10] LABS: ANION GAP 18.1 mmol/L (5-15); CHLORIDE,CL 102 mmol/L (98-109); SODIUM,NA 143 mmol/L (138-146)
[2018-06-28] MEDS: Allopurinol 100 MG Tab PO SCH (08:00)
[2018-06-28] MEDS: Hydrochlorothiazide 25 MG Tab PO SCH (08:00)
[2018-06-28] MEDS: Metoprolol Tartrate 25 MG Tab PO SCH ×2 (08:01→20:09)
--- NOTE | 2018-06-28 13:43 | PCM.PN ---
- General Info Date of Service: 06/28/18 Admission Dx/Problem (Free Text): COPD Exacerbation - Review of Systems Systems Review Comment:: Kevin is seen today on inpatient rounds. He was was admitted on 06/27/18 with a COPD exacerbation. He states he still has a cough and feels SOB today but he feels he is improved overall. When I ask him about his nebulizer at home he states that is does not work, upon further questioning he states "I don't have the hoses". He has not had the tubing in over 3 months. His appetite is good, he has no pain complaints. - Patient Data Vitals - Most Recent: Last Vital Signs Temp 98.1 F 06/28/18 11:00 Pulse 63 06/28/18 11:00 Resp 18 06/28/18 11:00 BP 142/66 H 06/28/18 11:00 Pulse Ox 96 06/28/18 11:00 Weight - Most Recent: 125 lb Lab Results Last 24 Hours: Laboratory Results - last 24 hr 06/27/18 06/27/18 06/28/18 Range/Units 17:10 17:25 06:55 WBC 6.21 3.81 L (5.00-10.00) 10^3/uL RBC 3.70 L 3.97 L (4.50-6.00) 10^6/uL Hgb 11.8 L 12.5 L (13.0-17.0) g/dL Hct 34.7 L 36.9 L (40.0-52.0) % MCV 93.8 H 92.9 H (82.0-92.0) fL MCH 31.9 H 31.5 H (27.0-31.0) pg MCHC 34.0 33.9 (32.0-36.0) g/dL RDW 13.6 13.4 (11.5-14.5) % Plt Count 193 179 (150-400) 10^3/uL MPV 9.9 9.6 (7.4-10.4) fL Immature Gran % (Auto) 0.2 0.0 (0.0-5.0) % Neut % (Auto) 69.0 84.8 H (50.0-70.0) % Lymph % (Auto) 16.3 L 14.7 L (20.0-40.0) % Rich % (Auto) 7.1 0.5 L (2.0-8.0) % Eos % (Auto) 6.8 H 0.0 L (1.0-3.0) % Baso % (Auto) 0.6 0.0 (0.0-1.0) % Immature Gran # (Auto) 0.01 0.00 (0.00-0.50) 10^3/uL Neut # (Auto) 4.29 3.23 (2.50-7.00) 10^3/uL Lymph # (Auto) 1.01 0.56 L (1.00-4.00) 10^3/uL Rich # (Auto) 0.44 0.02 L (0.10-0.80) 10^3/uL Eos # (Auto) 0.42 H 0.00 L (0.10-0.30) 10^3/uL Baso # (Auto) 0.04 0.00 (0.00-0.10) 10^3/uL Sodium 143 (138-146) mmol/L Potassium 3.9 (3.5-4.9) mmol/L Chloride 100 (98-109) mmol/L Carbon Dioxide 29 (24-29) mmol/L Anion Gap 17.9 H (5-15) mmol/L BUN 26 (8-26) mg/dL Creatinine 1.3 (0.6-1.3) mg/dL Est Cr Clr Drug Dosing 32.57 mL/min Estimated GFR (MDRD) 53 mL/min Glucose 102 (70-105) mg/dL Calcium Not Reportable Creatine Kinase Not Reportable CK-MB (CK-2) Not Reportable Troponin I < 0.04 (0.00-0.08) ng/mL 06/28/18 Range/Units 06:55 WBC (5.00-10.00) 10^3/uL RBC (4.50-6.00) 10^6/uL Hgb (13.0-17.0) g/dL Hct (40.0-52.0) % MCV (82.0-92.0) fL MCH (27.0-31.0) pg MCHC (32.0-36.0) g/dL RDW (11.5-14.5) % Plt Count (150-400) 10^3/uL MPV (7.4-10.4) fL Immature Gran % (Auto) (0.0-5.0) % Neut % (Auto) (50.0-70.0) % Lymph % (Auto) (20.0-40.0) % Rich % (Auto) (2.0-8.0) % Eos % (Auto) (1.0-3.0) % Baso % (Auto) (0.0-1.0) % Immature Gran # (Auto) (0.00-0.50) 10^3/uL Neut # (Auto) (2.50-7.00) 10^3/uL Lymph # (Auto) (1.00-4.00) 10^3/uL Rich # (Auto) (0.10-0.80) 10^3/uL Eos # (Auto) (0.10-0.30) 10^3/uL Baso # (Auto) (0.00-0.10) 10^3/uL Sodium 143 (138-146) mmol/L Potassium 4.1 (3.5-4.9) mmol/L Chloride 102 (98-109) mmol/L Carbon Dioxide 27 (24-29) mmol/L Anion Gap 18.1 H (5-15) mmol/L BUN 27 H (8-26) mg/dL Creatinine 1.1 (0.6-1.3) mg/dL Est Cr Clr Drug Dosing 40.09 mL/min Estimated GFR (MDRD) > 60 mL/min Glucose 167 H (70-105) mg/dL Calcium Not Reportable Creatine Kinase CK-MB (CK-2) Troponin I (0.00-0.08) ng/mL Med Orders - Current: Current Medications Albuterol/Ipratropium (Duoneb 3.0-0.5 Mg/3 Ml) 3 ml NEB Q4H [facility] Last Admin: 06/28/18 10:42 Dose: 3 ml Allopurinol (Zyloprim) 100 mg PO DAILY [facility] Last Admin: 06/28/18 08:00 Dose: 100 mg Atropine Sulfate (Atropine 0.1 Mg/Ml) 0 mg IVPUSH ASDIRECTED PRN PRN Reason: Heart Benzonatate (Tessalon Perles) 100 mg PO ASDIRECTED PRN PRN Reason: Cough Epinephrine HCl (Epinephrine 1:10,000) 1 mg IVPUSH ASDIRECTED PRN PRN Reason: Heart Hydrochlorothiazide (Hydrochlorothiazide) 25 mg PO DAILY [facility] Last Admin: 06/28/18 08:00 Dose: 25 mg Lidocaine HCl (Xylocaine 2%) 0 mg IVPUSH ASDIRECTED PRN PRN Reason: Heart Methylprednisolone Sodium Succinate (Solu-Medrol) 80 mg IVPUSH Q8H [facility] Last Admin: 06/28/18 10:43 Dose: 80 mg Metoprolol Tartrate (Lopressor) 12.5 mg PO BID [facility] Last Admin: 06/28/18 08:01 Dose: 12.5 mg Nitroglycerin (Nitrostat) 0.4 mg SL ASDIRECTED PRN PRN Reason: Heart Omeprazole (Omeprazole) 20 mg PO ACBREAKFAST [facility] Last Admin: 06/28/18 06:32 Dose: 20 mg Simvastatin (Zocor) 20 mg PO BEDTIME [facility] Last Admin: 06/27/18 21:13 Dose: 20 mg Sodium Chloride (Saline Flush) 10 ml FLUSH Q8HR PRN PRN Reason: keep vein open Last Admin: 06/28/18 10:45 Dose: 10 ml Tramadol HCl (Ultram) 50 mg PO QID PRN PRN Reason: Pain Triamcinolone Acetonide (Triamcinolone Acetonide 0.1% Crm) 0 gm TOP ASDIRECTED PRN PRN Reason: Rash Discontinued Medications Albuterol/Ipratropium (Duoneb 3.0-0.5 Mg/3 Ml) 3 ml NEB ONETIME ONE Stop: 06/27/18 17:42 Last Admin: 06/27/18 18:04 Dose: 3 ml Methylprednisolone Sodium Succinate (Solu-Medrol) 125 mg IVPUSH ONETIME ONE Stop: 06/27/18 17:42 Last Admin: 06/27/18 18:06 Dose: 125 mg Sodium Chloride (Saline Flush) 10 ml FLUSH Q8HR PRN PRN Reason: keep vein open Last Admin: 06/27/18 18:07 Dose: 10 ml - Exam General: Alert, Oriented, Cooperative, No Acute Distress Lungs: Wheezing Cardiovascular: Regular Rate, Regular Rhythm, No Murmurs GI/Abdominal Exam: Normal Bowel Sounds, Soft, Non-Tender Extremities: No Pedal Edema - Problem List & Annotations (1) COPD exacerbation SNOMED Code(s): 074830344 Code(s): J44.1 - CHRONIC OBSTRUCTIVE PULMONARY DISEASE W (ACUTE) EXACERBATION Status: Acute Current Visit: Yes - Problem List Review Problem List Initiated/Reviewed/Updated: Yes - Assessment Assessment:: COPD exacerbation - Plan Plan:: Continue steroids, nebulizers. I will get him set up with tubing for his nebulizer upon discharge. Anticipate 2 more overnights and then home.
[2018-06-28] MEDS ORDERED: Benzonatate 100 MG Cap PO PRN (18:01)
[2018-06-28] MEDS: Simvastatin 20 MG Tab PO SCH (20:09)
[2018-06-29] MEDS: Albuterol/Ipratropium 3.0-0.5 MG/3 ML Neb Soln NEB SCH ×6 (02:11→23:24)
[2018-06-29] MEDS: methylPREDNISolone Sodium Succinate 125 MG/2 ML SDV IVPUSH SCH ×3 (02:11→18:51)
[2018-06-29] MEDS: Sodium Chloride 0.9% 10 ML Syringe FLUSH PRN ×3 (02:12→18:47)
[2018-06-29] MEDS: Omeprazole 20 MG Cap.CR PO SCH (08:35)
[2018-06-29] MEDS: Hydrochlorothiazide 25 MG Tab PO SCH (08:35)
[2018-06-29] MEDS: Metoprolol Tartrate 25 MG Tab PO SCH ×2 (08:35→20:20)
[2018-06-29] MEDS: Allopurinol 100 MG Tab PO SCH (08:35)
--- NOTE | 2018-06-29 12:16 | PCM.PN ---
- General Info Date of Service: 06/29/18 Admission Dx/Problem (Free Text): COPD Exacerbation - Review of Systems Systems Review Comment:: Kevin is seen today on inpatient rounds. He was admitted on 06/27/18 with a COPD exacerbation. No evidence of infection. He has been treated with nebs and steroids, he feels he is improving but still has a slight cough. He notes that his "hose" for his nebulizer is "broken" and so he had not been using his nebulizer machine for at least 3 months. His appetite is good. He had a shower and feels better. No fevers, he is not requiring oxygen. - Patient Data Vitals - Most Recent: Last Vital Signs Temp 98.1 F 06/29/18 11:00 Pulse 56 L 06/29/18 11:00 Resp 20 06/29/18 11:00 BP 137/49 L 06/29/18 11:00 Pulse Ox 96 06/29/18 11:00 Weight - Most Recent: 125 lb I&O - Last 24 Hours: Intake & Output 06/28/18 06/29/18 06/29/18 22:59 06:59 14:59 Intake Total 500 0 Output Total 400 Balance 100 0 Med Orders - Current: Current Medications Albuterol/Ipratropium (Duoneb 3.0-0.5 Mg/3 Ml) 3 ml NEB Q4H [facility] Last Admin: 06/29/18 06:35 Dose: Not Given Allopurinol (Zyloprim) 100 mg PO DAILY [facility] Last Admin: 06/29/18 08:35 Dose: 100 mg Atropine Sulfate (Atropine 0.1 Mg/Ml) 0 mg IVPUSH ASDIRECTED PRN PRN Reason: Heart Benzonatate (Tessalon Perles) 100 mg PO TID PRN PRN Reason: Cough Epinephrine HCl (Epinephrine 1:10,000) 1 mg IVPUSH ASDIRECTED PRN PRN Reason: Heart Hydrochlorothiazide (Hydrochlorothiazide) 25 mg PO DAILY [facility] Last Admin: 06/29/18 08:35 Dose: 25 mg Lidocaine HCl (Xylocaine 2%) 0 mg IVPUSH ASDIRECTED PRN PRN Reason: Heart Methylprednisolone Sodium Succinate (Solu-Medrol) 80 mg IVPUSH Q8H [facility] Last Admin: 06/29/18 02:11 Dose: 80 mg Metoprolol Tartrate (Lopressor) 12.5 mg PO BID [facility] Last Admin: 06/29/18 08:35 Dose: 12.5 mg Nitroglycerin (Nitrostat) 0.4 mg SL ASDIRECTED PRN PRN Reason: Heart Omeprazole (Omeprazole) 20 mg PO ACBREAKFAST [facility] Last Admin: 06/29/18 08:35 Dose: 20 mg Simvastatin (Zocor) 20 mg PO BEDTIME [facility] Last Admin: 06/28/18 20:09 Dose: 20 mg Sodium Chloride (Saline Flush) 10 ml FLUSH Q8HR PRN PRN Reason: keep vein open Last Admin: 06/29/18 08:40 Dose: 10 ml Tramadol HCl (Ultram) 50 mg PO QID PRN PRN Reason: Pain Triamcinolone Acetonide (Triamcinolone Acetonide 0.1% Crm) 0 gm TOP ASDIRECTED PRN PRN Reason: Rash Discontinued Medications Albuterol/Ipratropium (Duoneb 3.0-0.5 Mg/3 Ml) 3 ml NEB ONETIME ONE Stop: 06/27/18 17:42 Last Admin: 06/27/18 18:04 Dose: 3 ml Benzonatate (Tessalon Perles) 100 mg PO ASDIRECTED PRN PRN Reason: Cough Methylprednisolone Sodium Succinate (Solu-Medrol) 125 mg IVPUSH ONETIME ONE Stop: 06/27/18 17:42 Last Admin: 06/27/18 18:06 Dose: 125 mg Sodium Chloride (Saline Flush) 10 ml FLUSH Q8HR PRN PRN Reason: keep vein open Last Admin: 06/27/18 18:07 Dose: 10 ml - Exam General: Alert, Oriented, Cooperative, No Acute Distress Lungs: Clear to Auscultation, Normal Respiratory Effort Cardiovascular: Regular Rate, Regular Rhythm, No Murmurs Extremities: No Pedal Edema - Problem List & Annotations (1) COPD exacerbation SNOMED Code(s): 190213029 Code(s): J44.1 - CHRONIC OBSTRUCTIVE PULMONARY DISEASE W (ACUTE) EXACERBATION Status: Acute Current Visit: Yes - Problem List Review Problem List Initiated/Reviewed/Updated: Yes - My Orders Last 24 Hours: My Active Orders 06/28/18 18:01 Benzonatate [Tessalon Perles] 100 mg PO TID PRN - Assessment Assessment:: COPD exacerbation - Plan Plan:: Continue steroids, nebulizers. I will get him set up with tubing for his nebulizer upon discharge. Anticipate discharge tomorrow (06/30/18)
[2018-06-29] MEDS: Simvastatin 20 MG Tab PO SCH (20:20)
[2018-06-30] MEDS: Albuterol/Ipratropium 3.0-0.5 MG/3 ML Neb Soln NEB SCH ×3 (02:54→11:42)
[2018-06-30] MEDS: methylPREDNISolone Sodium Succinate 125 MG/2 ML SDV IVPUSH SCH ×2 (02:54→12:04)
[2018-06-30 06:38] VITALS: BP 149/69
[2018-06-30] MEDS: Omeprazole 20 MG Cap.CR PO SCH (07:52)
[2018-06-30] MEDS: Metoprolol Tartrate 25 MG Tab PO SCH (08:26)
[2018-06-30] MEDS: Allopurinol 100 MG Tab PO SCH (08:27)
[2018-06-30] MEDS: Hydrochlorothiazide 25 MG Tab PO SCH (08:27)
--- NOTE | 2018-06-30 08:47 | PCM.DCSUM1 ---
Discharge Summary - Hospital Course Free Text/Narrative:: Kevin is being discharged from an inpatient stay 06/27/18 - 06/30/18 for COPD exacerbation. He as treated with solumedrol IV and nebulizers. I spoke with his pharmacist this morning who said he had gone through 2 albuterol inhalers in 2 days due to SOB and she encouraged him to go in. CXR negative and antibiotics were not indicated. He had no symptoms of influenza and was not swabbed for this. He remained afebrile in the hospital. Of note, on 06/29/18 in the evening he had an episode of chest pain. EKG was NSR with no ST-T changes to suggest ischemia. Troponins were negative x 2. He feels markedly improved. He notes he does not have tubing for his nebulizer at home and so he had not been using them. I will send a new prescription through for a nebulizer and tubing to his pharmacy. No medication changes at discharge. Discharge diagnoses, Primary: COPD Exacerbation, improving Secondary: HTN Hyperlipidemia Gout Acid Reflux Diagnosis: Stroke: No Modified Granville Scale: No Symptoms at All Modified Granville Scale Score: 0 - Discharge Data Discharge Date: 06/30/18 Discharge Disposition: Home, Self-Care 01 Condition: Good - Discharge Diagnosis/Problem(s) (1) COPD exacerbation SNOMED Code(s): 463071551 ICD Code: J44.1 - CHRONIC OBSTRUCTIVE PULMONARY DISEASE W (ACUTE) EXACERBATION Status: Acute Current Visit: Yes - Patient Instructions Diet: Regular Diet as Tolerated Activity: As Tolerated Notify Provider of: Fever - Discharge Plan *PRESCRIPTION DRUG MONITORING PROGRAM REVIEWED*: Not Applicable *COPY OF PRESCRIPTION DRUG MONITORING REPORT IN PATIENT JULIUS: Not Applicable Home Medications: Home Meds Allopurinol [Zyloprim] 100 mg PO DAILY 02/22/16 [History] Omeprazole 20 mg PO ACBREAKFAST cap.cr 01/21/17 [Rx] Albuterol [Proventil HFA] 1 puff INH Q4HR PRN 08/28/17 [History] Albuterol [Proventil Neb Soln] 2.5 mg NEB Q4HR PRN 08/28/17 [History] Budesonide/Formoterol Fumarate [Symbicort 160-4.5 Mcg Inhaler] 2 puff IH BID [History] Simvastatin [Zocor] 20 mg PO BEDTIME 08/28/17 [History] Benzonatate 1 cap PO ASDIRECTED PRN 06/27/18 [History] Metoprolol Tartrate [Lopressor] 12.5 mg PO BID 06/27/18 [History] Triamcinolone Acetonide [Triamcinolone Acetonide 0.1% Crm] 1 applic TOP ASDIRECTED PRN 06/27/18 [History] hydroCHLOROthiazide [Hydrochlorothiazide] 25 mg PO DAILY 06/27/18 [History] traMADol HCl [Tramadol HCl] 50 mg PO QID PRN 06/27/18 [History] - Discharge Summary/Plan Comment DC Time >30 min.: No - General Info Date of Service: 06/30/18 Admission Dx/Problem (Free Text: COPD Exacerbation - Review of Systems Systems Review Comment: "I feel great". No symptoms at all today. - Patient Data Vitals - Most Recent: Last Vital Signs Temp 98.2 F 06/30/18 06:37 Pulse 70 06/30/18 08:26 Resp 18 06/30/18 06:37 BP 149/69 H 06/30/18 08:26 Pulse Ox 97 06/30/18 06:37 Weight - Most Recent: 125 lb I&O - Last 24 hours: Intake & Output 06/29/18 06/30/18 06/30/18 22:59 06:59 14:59 Intake Total 150 Balance 150 Lab Results - Last 24 hrs: Laboratory Results - last 24 hr 06/29/18 06/30/18 Range/Units 19:50 02:00 Troponin I < 0.04 < 0.04 (0.00-0.070) ng/mL Med Orders - Current: Current Medications Albuterol/Ipratropium (Duoneb 3.0-0.5 Mg/3 Ml) 3 ml NEB Q4H [facility] Last Admin: 06/30/18 06:58 Dose: Not Given Allopurinol (Zyloprim) 100 mg PO DAILY [facility] Last Admin: 06/30/18 08:27 Dose: 100 mg Atropine Sulfate (Atropine 0.1 Mg/Ml) 0 mg IVPUSH ASDIRECTED PRN PRN Reason: Heart Benzonatate (Tessalon Perles) 100 mg PO TID PRN PRN Reason: Cough Epinephrine HCl (Epinephrine 1:10,000) 1 mg IVPUSH ASDIRECTED PRN PRN Reason: Heart Hydrochlorothiazide (Hydrochlorothiazide) 25 mg PO DAILY [facility] Last Admin: 06/30/18 08:27 Dose: 25 mg Lidocaine HCl (Xylocaine 2%) 0 mg IVPUSH ASDIRECTED PRN PRN Reason: Heart Methylprednisolone Sodium Succinate (Solu-Medrol) 80 mg IVPUSH Q8H [facility] Last Admin: 06/30/18 02:54 Dose: Not Given Metoprolol Tartrate (Lopressor) 12.5 mg PO BID [facility] Last Admin: 06/30/18 08:26 Dose: 12.5 mg Nitroglycerin (Nitrostat) 0.4 mg SL ASDIRECTED PRN PRN Reason: Heart Omeprazole (Omeprazole) 20 mg PO ACBREAKFAST [facility] Last Admin: 06/30/18 07:52 Dose: 20 mg Simvastatin (Zocor) 20 mg PO BEDTIME [facility] Last Admin: 06/29/18 20:20 Dose: 20 mg Sodium Chloride (Saline Flush) 10 ml FLUSH Q8HR PRN PRN Reason: keep vein open Last Admin: 06/29/18 18:47 Dose: 10 ml Tramadol HCl (Ultram) 50 mg PO QID PRN PRN Reason: Pain Triamcinolone Acetonide (Triamcinolone Acetonide 0.1% Crm) 0 gm TOP ASDIRECTED PRN PRN Reason: Rash Discontinued Medications Albuterol/Ipratropium (Duoneb 3.0-0.5 Mg/3 Ml) 3 ml NEB ONETIME ONE Stop: 06/27/18 17:42 Last Admin: 06/27/18 18:04 Dose: 3 ml Benzonatate (Tessalon Perles) 100 mg PO ASDIRECTED PRN PRN Reason: Cough Methylprednisolone Sodium Succinate (Solu-Medrol) 125 mg IVPUSH ONETIME ONE Stop: 06/27/18 17:42 Last Admin: 06/27/18 18:06 Dose: 125 mg Sodium Chloride (Saline Flush) 10 ml FLUSH Q8HR PRN PRN Reason: keep vein open Last Admin: 06/27/18 18:07 Dose: 10 ml - Exam General: Reports: Alert, Oriented, Cooperative, No Acute Distress Lungs: Reports: Clear to Auscultation, Normal Respiratory Effort Cardiovascular: Reports: Regular Rate, Regular Rhythm GI/Abdominal Exam: Normal Bowel Sounds Extremities: No Pedal Edema
[2018-06-30] MEDS: Sodium Chloride 0.9% 10 ML Syringe FLUSH PRN (12:05)
== END 2018-06-30 13:29 | disposition home or self-care (01) | DRG 192 ==
LOC: KA.ED 16:55 → KA.MS 18:30 → UNDODISIN 06-30 13:29
PROVIDERS: ADMIT Physician Assistant Medical; ATTEND Internal Medicine
DX: J44.1 Chronic obstructive pulmonary disease with (acute) exacerbation (principal); E78.00 Pure hypercholesterolemia, unspecified; I10 Essential (primary) hypertension; K21.9 Gastro-esophageal reflux disease without esophagitis; M10.9 Gout, unspecified; R07.9 Chest pain, unspecified; E78.5 Hyperlipidemia, unspecified; H54.7 Unspecified visual loss; H26.9 Unspecified cataract; H35.30 Unspecified macular degeneration; R06.02 Shortness of breath; R05 Cough; R06.2 Wheezing; Z86.73 Personal history of transient ischemic attack (TIA), and cerebral infarction without residual deficits; Z79.899 Other long term (current) drug therapy
CPT/HCPCS: 36415; 71046; 80048; 82550; 82553; 84484; 85025; 93005; 94640; 96374; 99285; A9270-GY; J2930; J7620-GY

== ENCOUNTER 2018-08-21 19:27 | Emergency (ER) | payer MEDICARE, MEDICAID ==
[2018-08-21 20:29] LABS: ANION GAP 13.8 mmol/L (5-15)
[2018-08-21] MEDS ORDERED: Albuterol/Ipratropium 3.0-0.5 MG/3 ML Neb Soln NEB ONE (20:29)
--- NOTE | 2018-08-21 20:34 | EDM.PDOC ---
ED HPI GENERAL MEDICAL PROBLEM - General Chief Complaint: Respiratory Problem Stated Complaint: SHORT OF BREATH Time Seen by Provider: 08/21/18 20:04 Source of Information: Reports: Patient History Limitations: Reports: No Limitations - History of Present Illness INITIAL COMMENTS - FREE TEXT/NARRATIVE: Patient presents with dyspnea for the last 10-12 hours. He has COPD and takes Symbicort bid as well as albuterol inhaler and nebulizer as needed: usually several times a day. The symbicort he doesn't take as regularly as prescribed because he is worried about side effects. Vitals are good on arrival and patient is surprised his oxygen sats are that good. - Related Data Allergies Allergy/AdvReac Type Severity Reaction Status Date / Time No Known Drug Allergies Allergy Cannot Verified 08/21/18 19:40 Remember Home Meds: Home Meds Allopurinol [Zyloprim] 100 mg PO DAILY 02/22/16 [History] Omeprazole 20 mg PO ACBREAKFAST cap.cr 01/21/17 [Rx] Albuterol [Proventil HFA] 1 puff INH Q4HR PRN 08/28/17 [History] Albuterol [Proventil Neb Soln] 2.5 mg NEB Q4HR PRN 08/28/17 [History] Budesonide/Formoterol Fumarate [Symbicort 160-4.5 Mcg Inhaler] 2 puff IH BID [History] Simvastatin [Zocor] 20 mg PO BEDTIME 08/28/17 [History] Benzonatate 1 cap PO ASDIRECTED PRN 06/27/18 [History] Metoprolol Tartrate [Lopressor] 12.5 mg PO BID 06/27/18 [History] Triamcinolone Acetonide [Triamcinolone Acetonide 0.1% Crm] 1 applic TOP ASDIRECTED PRN 06/27/18 [History] hydroCHLOROthiazide [Hydrochlorothiazide] 25 mg PO DAILY 06/27/18 [History] traMADol HCl [Tramadol HCl] 50 mg PO QID PRN 06/27/18 [History] Past Medical History HEENT History: Reports: Cataract, Impaired Vision, Macular Degeneration 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 Cardiovascular History: Reports: High Cholesterol, Hypertension Respiratory History: Reports: COPD Gastrointestinal History: Reports: GERD Genitourinary History: Reports: Prostate Disorder, Other (See Below) Other Genitourinary History: h/o bladder surgery from accident when younger Musculoskeletal History: Reports: Fracture, Gout Other Musculoskeletal History: crushing injury to pelvis and legs Neurological History: Reports: CVA Psychiatric History: Reports: Bipolar Hematologic History: Reports: Blood Transfusion(s) Immunologic History: Reports: None Oncologic (Cancer) History: Reports: None - Infectious Disease History Infectious Disease History: Reports: Chicken Pox, Mumps - Past Surgical History Male Surgical History: Reports: Other (See Below) Musculoskeletal Surgical History: Reports: Other (See Below) Social & Family History - Family History Family Medical History: Noncontributory - Tobacco Use Smoking Status *Q: Former Smoker Packs/Tins Daily: 4 Used Tobacco, but Quit: Yes Month/Year Tobacco Last Used: 1974 - Caffeine Use Caffeine Use: Reports: Coffee - Recreational Drug Use Recreational Drug Use: No ED ROS GENERAL - Review of Systems Review Of Systems: See Below Constitutional: Denies: Fever, Chills, Malaise, Weakness HEENT: Denies: Throat Pain, Vision Change Respiratory: Reports: Shortness of Breath, Wheezing (chronic), Cough (chronic) Cardiovascular: Reports: Lightheadedness (occasional), Other (denies any significant cardiac history). Denies: Chest Pain, Syncope Endocrine: Denies: Fatigue GI/Abdominal: Denies: Abdominal Pain, Diarrhea, Nausea, Vomiting : Reports: No Symptoms Musculoskeletal: Reports: No Symptoms Skin: Denies: Cyanosis, Jaundice, Mottled, Pallor, Diaphoresis Neurological: Denies: Confusion, Seizure, Syncope, Trouble Speaking Psychiatric: Denies: Agitation, Anxiety, Confusion ED EXAM, GENERAL - Physical Exam Exam: See Below Exam Limited By: No Limitations General Appearance: Alert, WD/WN, No Apparent Distress Eye Exam: Bilateral Eye: EOMI, Normal Inspection, PERRL Ears: Normal External Exam, Hearing Grossly Normal (a little hard of hearing) Nose: Normal Inspection, No Blood Throat/Mouth: Normal Inspection, Normal Lips, Normal Voice, No Airway Compromise Head: Atraumatic, Normocephalic Neck: Normal Inspection, Full Range of Motion Respiratory/Chest: No Respiratory Distress (except chronic prolonged expiration and wheezing), No Accessory Muscle Use (not significantly), Crackles (throughout ), Rhonchi, Wheezing (throughout), Prolonged Expiration. No: Stridor, Retractions Cardiovascular: Regular Rate, Rhythm, No Edema, No Murmur GI/Abdominal: Normal Bowel Sounds, Soft, Non-Tender, No Organomegaly, No Distention Back Exam: Normal Inspection, Full Range of Motion. No: CVA Tenderness (L), CVA Tenderness (R) Extremities: Normal Inspection, Normal Range of Motion, No Pedal Edema Neurological: Alert, Oriented, Normal Cognition, No Motor/Sensory Deficits Psychiatric: Normal Affect, Normal Mood Skin Exam: Warm, Dry, Intact, Normal Color, No Rash Course - Vital Signs Last Recorded V/S: Last Vital Signs Temp 98 F 08/21/18 19:30 Pulse 80 08/21/18 20:30 Resp 18 08/21/18 19:30 BP 122/54 L 08/21/18 20:50 Pulse Ox 99 08/21/18 20:30 - Orders/Labs/Meds Orders: Active Orders 24 hr Category Date Time Status RT Aerosol Therapy [RC] ASDIRECTED Care 08/21/18 20:30 Active Chest 2V [CR] Stat Exams 08/21/18 19:40 Taken Labs: Laboratory Tests 08/21/18 08/21/18 Range/Units 19:50 19:50 WBC 5.92 (5.00-10.00) 10^3/uL RBC 3.63 L (4.50-6.00) 10^6/uL Hgb 11.8 L (13.0-17.0) g/dL Hct 34.5 L (40.0-52.0) % MCV 95.0 H (82.0-92.0) fL MCH 32.5 H (27.0-31.0) pg MCHC 34.2 (32.0-36.0) g/dL RDW 13.6 (11.5-14.5) % Plt Count 186 (150-400) 10^3/uL MPV 9.4 (7.4-10.4) fL Add Manual Diff Yes Neutrophils % (Manual) 61 (50-70) % Lymphocytes % (Manual) 23 (20-40) % Monocytes % (Manual) 3 (2-8) % Eosinophils % (Manual) 13 H (1-3) % Absolute Neutrophils 3.61 Lymphocytes # (Manual) 1.36 Monocytes # (Manual) 0.18 Eosinophils # (Manual) 0.77 Sodium 144 (136-145) mmol/L Potassium 4.2 (3.3-5.3) mmol/L Chloride 104 (98-115) mmol/L Carbon Dioxide 30.4 (21.0-32.0) mmol/L Anion Gap 13.8 (5-15) mmol/L BUN 25 (6-25) mg/dL Creatinine 1.32 H (0.51-1.17) mg/dL Est Cr Clr Drug Dosing 34.21 mL/min Estimated GFR (MDRD) 52 mL/min Glucose 99 (75 - 99) mg/dL Calcium 8.9 (8.7-10.3) mg/dL Total Bilirubin 0.3 (0.2-1.0) mg/dL AST 21 (15-37) U/L ALT 13 (12-78) U/L Alkaline Phosphatase 75 (46-116) IU/L B-Natriuretic Peptide 107 H (0-100) pg/mL Total Protein 6.6 (6.4-8.2) g/dL Albumin 3.87 (3.00-4.80) g/dL Meds: Medications Discontinued Medications Generic Name Dose Route Start Last Admin Trade Name Freq PRN Reason Stop Dose Admin Albuterol/Ipratropium 3 ml 08/21/18 20:29 08/21/18 20:33 Duoneb 3.0-0.5 Mg/3 Ml NEB 08/21/18 20:30 3 ml ONETIME ONE Administration Azithromycin 500 mg 08/21/18 21:23 Zithromax PO 08/21/18 21:24 ONETIME ONE - Re-Assessments/Exams Free Text/Narrative Re-Assessment/Exam: 08/21/18 21:25 He is breathing better following the DuoNeb and states he feels much better. I was considering a dose of Solu-medrol but don't feel it's needed now. I will do a course of Z-pack empirically for the COPD exacerbation. The patient would like to have DuoNeb at home rather than his albuterol nebs. We discussed that he should call his PCP tomorrow for a long-term change in this prescription. 08/21/18 21:30 Patient stable throughout ER course and significantly improved at discharge. We discussed that he should be taking his Symbicort regularly as prescribed rather than skipping doses. Departure - Departure Time of Disposition: 21:28 Disposition: Home, Self-Care 01 Condition: Good Clinical Impression: COPD exacerbation - Discharge Information Referrals: Terese Arambula MD [Primary Care Provider] - Forms: ED Department Discharge Additional Instructions: 1. Continue your inhalers as prescribed. 2. Call Dr. Jarrell's office tomorrow to ask about a DuoNeb prescription for your nebulizer. 3. Take the Z-pack as directed. 4. Follow up with your PCP if the symptoms persist or return. - My Orders Last 24 Hours: My Active Orders 08/21/18 19:40 Chest 2V [CR] Stat 08/21/18 20:30 RT Aerosol Therapy [RC] ASDIRECTED - Assessment/Plan Last 24 Hours: My Active Orders 08/21/18 19:40 Chest 2V [CR] Stat 08/21/18 20:30 RT Aerosol Therapy [RC] ASDIRECTED
[2018-08-21 20:51] VITALS: BP 122/54
[2018-08-21] MEDS ORDERED: Azithromycin 250 MG Tab PO ONE (21:23)
--- NOTE | 2018-08-21 22:20 | CR ---
[id number] RAD/RAD Chest PA And Lateral EXAM: RAD Chest PA And Lateral INDICATION: SOB COMPARISON: June 27, 2018 DISCUSSION: Cardiomediastinal silhouette is normal in size and contour. Advanced changes of parenchymal emphysema. Findings are similar to the prior examination. Pneumothorax, edema, effusion, or pneumonia. IMPRESSION: No acute findings or significant change from the prior examination. Keaton Sandhu MD 08/21/18 2212 Thank you for allowing us to participate in the care of your patient.
== END 2018-08-21 21:50 | disposition home or self-care (01) ==
LOC: KA.ED 19:27
DX: J44.1 Chronic obstructive pulmonary disease with (acute) exacerbation (principal); E78.00 Pure hypercholesterolemia, unspecified; I10 Essential (primary) hypertension; K21.9 Gastro-esophageal reflux disease without esophagitis; Z87.891 Personal history of nicotine dependence; Z79.899 Other long term (current) drug therapy
CPT/HCPCS: 71046; 80053; 83880; 85025; 94640; 99283-25; 99284; A9270-GY; J7620-GY

== ENCOUNTER 2018-09-07 10:05 | Emergency (ER) | payer MEDICARE, MEDICAID ==
[2018-09-07 10:21] VITALS: BP 129/69
[2018-09-07] MEDS ORDERED: Albuterol/Ipratropium 3.0-0.5 MG/3 ML Neb Soln NEB ONE (11:03)
--- NOTE | 2018-09-07 11:54 | CR ---
[id number] RAD/RAD Chest PA And Lateral EXAM: RAD Chest PA And Lateral INDICATION: SHORT OF BREATH,COPD. COMPARISON: August 21, 2018. DISCUSSION: Cardiomediastinal silhouette is normal in size and contour. No infiltrate, effusion, pneumothorax, or edema. Pulmonary hyperinflation. IMPRESSION: No acute cardiopulmonary abnormality. Oli Woodard DO 09/07/18 1153 Thank you for allowing us to participate in the care of your patient.
[2018-09-07 12:03] LABS: ANION GAP 12.3 mmol/L (5-15); CHLORIDE,CL 106 mmol/L (98-115); SODIUM,NA 144 mmol/L (136-145)
--- NOTE | 2018-09-07 15:19 | EDM.PDOC ---
ED HPI GENERAL MEDICAL PROBLEM - General Chief Complaint: Respiratory Problem Stated Complaint: SHORTNESS OF BREATH Time Seen by Provider: 09/07/18 10:30 Source of Information: Reports: Patient History Limitations: Reports: No Limitations - History of Present Illness INITIAL COMMENTS - FREE TEXT/NARRATIVE: 82-year-old male presents to the emergency room with complaint of an exacerbation of his COPD. Patient does take an inhaler and has nebulizer treatments at home. He began feeling increasing short of breath yesterday. He only did it in his nebulizer one time. He has not done a nebulizer treatment today is nebulizing medication is albuterol. He is only taking his inhaler once today. He denies any fever or chills or cough. He has no chest pain. He denies any abdominal pain. He denies any swelling in his legs. He is a nonsmoker quit 50 years ago. His primary care is Dr. Terese Hernandez or Julianna UGARTE, he is also seen at the [facility] in [place]. Patient brought himself in today. He does not seem to be any respiratory distress. He is able have a normal conversation without being excessively short of breath. Onset: Today Onset Date: 09/13/18 Duration: Minutes:, Intermittent Location: Reports: Chest Quality: Reports: Dull Severity: Mild Improves with: Reports: Medication Worsens with: Reports: None Associated Symptoms: Reports: No Other Symptoms Treatments [employer]: Reports: Other Medication(s) (Inhaler) - Related Data Allergies Allergy/AdvReac Type Severity Reaction Status Date / Time No Known Drug Allergies Allergy Cannot Verified 09/07/18 10:21 Remember Home Meds: Home Meds Allopurinol [Zyloprim] 100 mg PO DAILY 02/22/16 [History] Omeprazole 20 mg PO ACBREAKFAST cap.cr 01/21/17 [Rx] Albuterol [Proventil HFA] 1 puff INH Q4HR PRN 08/28/17 [History] Albuterol [Proventil Neb Soln] 2.5 mg NEB Q4HR PRN 08/28/17 [History] Budesonide/Formoterol Fumarate [Symbicort 160-4.5 Mcg Inhaler] 2 puff IH BID [History] Simvastatin [Zocor] 20 mg PO BEDTIME 03/28/18 [History] Metoprolol Tartrate [Lopressor] 12.5 mg PO BID 06/27/18 [History] hydroCHLOROthiazide [Hydrochlorothiazide] 25 mg PO DAILY 06/27/18 [History] traMADol HCl [Tramadol HCl] 50 mg PO QID PRN 06/27/18 [History] Past Medical History HEENT History: Reports: Cataract, Impaired Vision, Macular Degeneration 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 Cardiovascular History: Reports: High Cholesterol, Hypertension Respiratory History: Reports: COPD Gastrointestinal History: Reports: GERD Genitourinary History: Reports: Prostate Disorder, Other (See Below) Other Genitourinary History: h/o bladder surgery from accident when younger Musculoskeletal History: Reports: Fracture, Gout Other Musculoskeletal History: crushing injury to pelvis and legs Neurological History: Reports: CVA Psychiatric History: Reports: Bipolar Hematologic History: Reports: Blood Transfusion(s) Immunologic History: Reports: None Oncologic (Cancer) History: Reports: None - Infectious Disease History Infectious Disease History: Reports: Chicken Pox, Mumps - Past Surgical History Male Surgical History: Reports: Other (See Below) Musculoskeletal Surgical History: Reports: Other (See Below) Social & Family History - Family History Family Medical History: Noncontributory - Tobacco Use Smoking Status *Q: Former Smoker Used Tobacco, but Quit: Yes Month/Year Tobacco Last Used: 10 - Caffeine Use Caffeine Use: Reports: Coffee ED ROS GENERAL - Review of Systems Review Of Systems: See Below Constitutional: Reports: No Symptoms HEENT: Reports: No Symptoms Respiratory: Reports: Shortness of Breath. Denies: Wheezing, Cough, Sputum Cardiovascular: Reports: Dyspnea on Exertion. Denies: Chest Pain, Blood Pressure Problem, Edema, Lightheadedness, Orthopnea, Palpitations Endocrine: Reports: No Symptoms GI/Abdominal: Reports: No Symptoms : Reports: No Symptoms Musculoskeletal: Reports: No Symptoms Skin: Reports: No Symptoms Neurological: Reports: No Symptoms Psychiatric: Reports: No Symptoms Hematologic/Lymphatic: Reports: No Symptoms Immunologic: Reports: No Symptoms ED EXAM, GENERAL - Physical Exam Exam: See Below Exam Limited By: No Limitations General Appearance: Alert, No Apparent Distress, Thin Eye Exam: Bilateral Eye: EOMI Ears: Hearing Loss (Severe) Nose: Normal Inspection Throat/Mouth: Normal Inspection, Normal Oropharynx, Normal Voice, No Airway Compromise Head: Atraumatic, Normocephalic Neck: Normal Inspection, Supple, Non-Tender, Full Range of Motion Respiratory/Chest: No Respiratory Distress, Lungs Clear, Normal Breath Sounds. No: Crackles, Wheezing Cardiovascular: Regular Rate, Rhythm, No Murmur GI/Abdominal: Soft, Non-Tender Back Exam: Normal Inspection, Full Range of Motion Extremities: Normal Inspection, Normal Range of Motion, No Pedal Edema Neurological: Alert, Oriented, Normal Cognition, Normal Gait, No Motor/Sensory Deficits Psychiatric: Normal Affect, Normal Mood Skin Exam: Warm, Dry, Intact, Normal Color, No Rash Lymphatic: No Adenopathy Course - Vital Signs Last Recorded V/S: Last Vital Signs Temp 97.5 F 09/07/18 10:17 Pulse 73 09/07/18 10:17 Resp 18 09/07/18 10:17 BP 129/69 09/07/18 10:17 Pulse Ox 94 L 09/07/18 10:17 - Orders/Labs/Meds Orders: Active Orders 24 hr Category Date Time Status RT Aerosol Therapy [RC] ASDIRECTED Care 09/07/18 11:03 Active Labs: Laboratory Tests 09/07/18 09/07/18 Range/Units 11:25 11:25 WBC 5.80 (5.00-10.00) 10^3/uL RBC 3.71 L (4.50-6.00) 10^6/uL Hgb 11.7 L (13.0-17.0) g/dL Hct 34.1 L (40.0-52.0) % MCV 91.9 D (82.0-92.0) fL MCH 31.5 H (27.0-31.0) pg MCHC 34.3 (32.0-36.0) g/dL RDW 13.3 (11.5-14.5) % Plt Count 176 (150-400) 10^3/uL MPV 8.9 (7.4-10.4) fL Add Manual Diff Yes Neutrophils % (Manual) 58 (50-70) % Lymphocytes % (Manual) 13 L (20-40) % Monocytes % (Manual) 10 H (2-8) % Eosinophils % (Manual) 19 H (1-3) % Absolute Neutrophils 3.36 Lymphocytes # (Manual) 0.75 Monocytes # (Manual) 0.58 Eosinophils # (Manual) 1.10 Sodium 144 (136-145) mmol/L Potassium 4.2 (3.3-5.3) mmol/L Chloride 106 (98-115) mmol/L Carbon Dioxide 29.9 (21.0-32.0) mmol/L Anion Gap 12.3 (5-15) mmol/L BUN 27 H (6-25) mg/dL Creatinine 1.15 (0.51-1.17) mg/dL Est Cr Clr Drug Dosing 38.04 mL/min Estimated GFR (MDRD) > 60 mL/min Glucose 92 (75 - 99) mg/dL Calcium 9.0 (8.7-10.3) mg/dL Meds: Medications Discontinued Medications Generic Name Dose Route Start Last Admin Trade Name Freq PRN Reason Stop Dose Admin Albuterol/Ipratropium 3 ml 09/07/18 11:03 09/07/18 11:33 Duoneb 3.0-0.5 Mg/3 Ml NEB 09/07/18 11:04 3 ml ONETIME ONE Administration - Radiology Interpretation Free Text/Narrative:: Chest x-ray PA lateral Discussion: -Cardiomediastinal silhouette is normal in size and contour -no infiltrate, effusion, pneumothorax, or edema. Pulmonary hyperinflation. Impression: -No acute cardiopulmonary abnormality - Re-Assessments/Exams Free Text/Narrative Re-Assessment/Exam: 09/07/18 16:06 Patient was given a duo neb treatment reports improvement with regards to his breathing. Departure - Departure Time of Disposition: 12:50 Disposition: Home, Self-Care 01 Condition: Good Clinical Impression: Asthma exacerbation in COPD - Discharge Information Instructions: Chronic Obstructive Pulmonary Disease, [id number] Referrals: Terese Arambula MD [Primary Care Provider] - Forms: ED Department Discharge - My Orders Last 24 Hours: My Active Orders 09/07/18 11:03 RT Aerosol Therapy [RC] ASDIRECTED - Assessment/Plan Last 24 Hours: My Active Orders 09/07/18 11:03 RT Aerosol Therapy [RC] ASDIRECTED Assessment:: Acute exacerbation of COPD Plan: 1. Albuterol treatment every 4-6 hours while awake today. 2. Follow-up with Dr. Terese Hernandez Saturday or Saturday 3. Return to the emergency room if symptoms are not relieved with nebulizer treatments at home
== END 2018-09-07 12:50 | disposition home or self-care (01) ==
LOC: KA.ED 10:05
DX: J44.1 Chronic obstructive pulmonary disease with (acute) exacerbation (principal); E78.00 Pure hypercholesterolemia, unspecified; I10 Essential (primary) hypertension; K21.9 Gastro-esophageal reflux disease without esophagitis; Z87.891 Personal history of nicotine dependence; Z79.899 Other long term (current) drug therapy
CPT/HCPCS: 36415; 71046; 80048; 85025; 99285; 99285-25; J7620-GY